=== PATIENT | female | born 1970 ===

== ENCOUNTER 2017-04-27 13:01 | Emergency (ER) | payer MEDICAID ==
[2017-04-27 13:02] VITALS: BMI 33.2
[2017-04-27 13:20] VITALS: TEMP 98
[2017-04-27] MEDS ORDERED: Albuterol-Ipratrop 3 mg / 0.5 (3 ml) UD INH STA ×2 (13:43→15:29)
--- NOTE | 2017-04-27 14:13 | ED PDOC ---
HPI: SOB/CHF/COPD Time Seen by Provider: 04/27/17 13:26 Chief Complaint (Nursing): Chest Pain History Per: Patient History/Exam Limitations: no limitations Onset/Duration Of Symptoms: Gradual (2 days) Current Symptoms Are (Timing): Still Present Current Respiratory Medications: Albuterol Severity: Moderate Associated Symptoms: Chest Pain. denies: Fever, Chills, Sweating, Light- headedness Similar Symptoms Previously: similar to asthma Additional History Per: Patient, Family Additional Complaint(s): [facility] brought pt from PMD office +sob. in field albuerol ; atrovent and 125 solumedrol given. sob x2 day mid chest pain +yellow color sputum Past Medical History Reviewed: Historical Data, Nursing Documentation, Vital Signs Vital Signs: Last Vital Signs Temp 98 F 04/27/17 13:17 Pulse 109 H 04/27/17 13:17 Resp 22 04/27/17 13:17 BP 133/78 04/27/17 13:17 Pulse Ox 98 04/27/17 14:18 - Medical History PMH: Anemia, Asthma, Diabetes, HTN, Hypercholesterolemia Denies: HIV, Chronic Kidney Disease, Sexually Transmitted Disease - Family History Family History: States: Unknown Family Hx - Living Arrangements Living Arrangements: With Family - Social History Current smoker - smoking cessation education provided: No - Immunization History Hx Tetanus Toxoid Vaccination: No Hx Influenza Vaccination: No Hx Pneumococcal Vaccination: No - Home Medications Home Medications: Ambulatory Orders Medication Instructions Recorded MetFORMIN [glucoPHAGE] 1,000 mg PO BID 10/02/13 Albuterol HFA [Ventolin HFA 90 2 puff IH [id number] PRN 01/27/16 mcg/actuation (8 g)] Fluticasone Propionate [Flovent 1 puff IH DAILY 01/30/16 Hfa] Montelukast [Singulair] 10 mg PO HS #30 tab 02/10/16 Acetaminophen [Tylenol 325mg tab] 650 mg PO BID PRN 01/30/17 Ferrous Sulfate [Ferosul] 1 tab PO DAILY 01/30/17 Lisinopril [Zestril] 20 mg PO DAILY 01/30/17 Naproxen [Naprosyn] 500 mg PO DAILY 01/30/17 Rosuvastatin Calcium [Crestor] 10 mg PO HS 01/30/17 Acetaminophen [Tylenol 325mg tab] 650 mg PO Q6 PRN 14 Days 02/01/17 Albuterol/Ipratropium [Duoneb 3 3 ml INH Q6 30 Days 02/01/17 mg/0.5 mg (3 ml) UD] Methylprednisolone [Medrol Dose 4 mg PO DAILY #21 mg 02/01/17 Pack (21 tabs)] Albuterol HFA [Ventolin HFA 90 2 puff IH [id number] #60 puff 04/27/17 mcg/actuation (8 g)] predniSONE [predniSONE Tab] 40 mg PO DAILY 3 Days 04/27/17 - Allergies Allergies/Adverse Reactions: Allergies Allergy/AdvReac Type Severity Reaction Status Date / Time No Known Allergies Allergy Verified 01/30/17 10:21 Review of Systems ROS Statement: Except As Marked, All Systems Reviewed And Found Negative Constitutional: Negative for: Fever, Chills Cardiovascular: Negative for: Chest Pain, Palpitations Respiratory: Positive for: Cough, Sputum (yellow). Negative for: Shortness of Breath Gastrointestinal: Negative for: Nausea, Vomiting, Abdominal Pain Neurological: Negative for: Weakness, Numbness Physical Exam - Reviewed Nursing Documentation Reviewed: Yes Vital Signs Reviewed: Yes - Physical Exam Appears: Positive for: Uncomfortable Head Exam: Positive for: ATRAUMATIC, NORMAL INSPECTION, NORMOCEPHALIC Eye Exam: Positive for: Normal appearance, EOMI. Negative for: Periorbital swelling, Periorbital tenderness ENT: Positive for: Pharynx Is (clear,mmm) Neck: Positive for: Normal, Painless ROM, Supple Cardiovascular/Chest: Positive for: Regular Rate, Rhythm, Chest Non Tender. Negative for: Edema Respiratory: Positive for: Wheezing (mild scattered). Negative for: Accessory Muscle Use, Crackles, Rales, Rhonchi, Stridor, Respiratory Distress Gastrointestinal/Abdominal: Positive for: Normal Exam, Bowel Sounds, Soft. Negative for: Tenderness Back: Positive for: Normal Inspection. Negative for: L CVA Tenderness, R CVA Tenderness Extremity: Positive for: Normal ROM. Negative for: Tenderness, Pedal Edema, Calf Tenderness, Deformity Neurologic/Psych: Positive for: Alert, toolroom attendant II-XII, Oriented. Negative for: Motor/Sensory Deficits - Laboratory Results Result Diagrams: 04/27/17 14:00 04/27/17 14:00 - ECG ECG: Positive for: Interpreted By Me ECG Rhythm: Positive for: Normal QRS, Normal ST Segment, Sinus Rhythm, ST/T Changes (twi in v3 and v4) Interpretation Of Abn EKG: abnormal ecg w/o change since 01/30/2017 O2 Sat by Pulse Oximetry: 98 Pulse Ox Interpretation: Normal - Radiology X-Ray: Interpreted by Me X-Ray Interpretation: No Acute Disease - Progress ED Course And Treament: wheezing resolved advise albuterol and prednisone. Re-evaluation Time: 16:03 Condition: Improved Nebulizer Treatments/Peak Flow - Duonebs Number of Bronchodilator Doses given?: 2 - Steroid Treatment Steroid: IV - Clinical Response Clinical Response: Improved Disposition - Clinical Impression Clinical Impression: Asthma with acute exacerbation in adult - Patient ED Disposition Is Patient to be Admitted: No Counseled Patient/Family Regarding: Studies Performed, Diagnosis, Need For Followup, Rx Given - Disposition Referrals: [facility] [place] [Outside] (2 to 3 days) Disposition: Routine/Home Disposition Time: 16:06 Condition: GOOD Prescriptions: Albuterol HFA [Ventolin HFA 90 mcg/actuation (8 g)] 2 puff IH [id number] #60 puff predniSONE [predniSONE Tab] 40 mg PO DAILY 3 Days Instructions: Asthma (ED) Print Language: FAROESE
[2017-04-27] MEDS ORDERED: Albuterol-Ipratrop 3 mg / 0.5 (3 ml) UD ONE ×2 (14:33→16:20)
[2017-04-27 15:00] LABS: BASO % 0.1 % (0.0-2.0); EOS % 0.1 % (0.0-4.0); HEMATOCRIT 35.7 % (34.0-47.0); LYMPH # 2.3 K/uL (1.0-4.3); LYMPH % 22.7 % (20.0-40.0); MEAN CELL VOLUME 80.7 fl (81.0-99.0); MEAN CORPUSCULAR HEMOGLOBIN 25.6 pg (27.0-31.0); MEAN CORPUSCULAR HGB CONC 31.7 g/dL (33.0-37.0); MEAN PLATELET VOLUME 8.8 fl (7.2-11.7); MONO # 0.7 K/uL (0.0-0.8); MONO % 6.8 % (0.0-10.0); NEUT # 7.2 K/uL (1.8-7.0); NEUT % 70.3 % (50.0-75.0); RED CELL DISTRIBUTION WIDTH 17.6 % (11.5-14.5); WHITE BLOOD COUNT 10.2 K/uL (4.8-10.8)
[2017-04-27 15:11] LABS: ALB/GLOB RATIO 1.4 (1.0-2.1); ALKALINE PHOSPHATASE 68 U/L (38-126); ALT/SGPT 38 U/L (9-52); AST/SGOT 28 U/L (14-36); BILIRUBIN,TOTAL 0.2 mg/dl (0.2-1.3); BLOOD UREA NITROGEN 9 mg/dl (7-17); CALCIUM 9.2 mg/dL (8.4-10.2); CARBON DIOXIDE 23 mmol/L (22-30); CHLORIDE 103 mmol/L (98-107); GFR AFRICAN-AMERICAN > 60; GLUCOSE,RANDOM 165 mg/dL (65-105); POTASSIUM 3.8 MMOL/L (3.6-5.0); SODIUM 139 mmol/l (132-148)
[2017-04-27 15:17] LABS: PARTIAL THROMBOPLASTIN TIME 22.8 SECONDS (23.3-32.5)
--- NOTE | 2017-04-27 15:47 | RAD ---
PROCEDURE: CHEST RADIOGRAPH, 1 VIEW HISTORY: Shortness of breath COMPARISON: None available. FINDINGS: LUNGS: The lungs are well inflated and clear. PLEURA: No pneumothorax or pleural fluid seen. CARDIOVASCULAR: Normal. OSSEOUS STRUCTURES: No significant abnormalities. VISUALIZED UPPER ABDOMEN: Normal. OTHER FINDINGS: None. IMPRESSION: No active pulmonary disease.
[2017-04-27 16:55] VITALS: BP 129/72; PULSE 105; RESP 20; O2SAT 100
--- NOTE | 2017-04-28 08:25 | CARD ---
APPROVED REPORT EKG Measurement Heart [id number] <Conclusion> Normal sinus rhythm T wave abnormality, consider anterior ischemia Abnormal ECG
== END 2017-04-27 16:54 | disposition home or self-care (01) ==
LOC: H.ER 13:01
DX: J45.901 Unspecified asthma with (acute) exacerbation (principal); R07.89 Other chest pain; R06.02 Shortness of breath; E11.9 Type 2 diabetes mellitus without complications; E78.00 Pure hypercholesterolemia, unspecified; I10 Essential (primary) hypertension; Z79.84 Long term (current) use of oral hypoglycemic drugs